=== PATIENT | male | born 1980 | race Caucasian/White ===

== ENCOUNTER 2017-05-19 15:14 | Emergency (ER) | payer MEDICAID ==
[2017-05-19 15:25] VITALS: BP 152/93
[2017-05-19] MEDS ORDERED: Lidocaine/EPINEPHrine/Tetracaine Soln 1 ML TOP ONE (15:36)
[2017-05-19] MEDS ORDERED: Lidocaine 1% with EPINEPHrine 1:100,000 20 ML MDV INJECT ONE (15:36)
--- NOTE | 2017-05-19 16:43 | EDM.PDOC ---
ED HPI GENERAL MEDICAL PROBLEM - General Chief Complaint: Upper Extremity Injury/Pain Stated Complaint: SWOLLEN LT ELBOW Time Seen by Provider: 05/19/17 15:28 Source of Information: Reports: Patient History Limitations: Reports: No Limitations - History of Present Illness INITIAL COMMENTS - FREE TEXT/NARRATIVE: The patient woke up this morning with edema and pain to his left elbow. He had some abrasions to his elbow from moving some forms a few days ago. There is redness and edema. He has no fever or chills. Onset: Sudden Duration: Hour(s): (Woke up with it this morning) Location: Reports: Lower Extremity, Left (Elbow) Quality: Reports: Sharp Severity: Moderate Improves with: Reports: Immobilization Worsens with: Reports: Movement Associated Symptoms: Reports: No Other Symptoms Left Elbow Pain Score (Numeric/FACES): 5 - Related Data Allergies Allergy/AdvReac Type Severity Reaction Status Date / Time No Known Allergies Allergy Verified 05/19/17 15:24 Home Meds: Home Meds Hydrocodone/Acetaminophen [Hydrocodon-Acetaminophen 5-325] 1 - 2 each PO Q6HR PRN #20 tablet 05/19/17 [Rx] Sulfamethoxazole/Trimethoprim [Bactrim Ds Tablet] 1 each PO BID #20 tablet 05/19 [Rx] Past Medical History - Past Health History Medical/Surgical History: Denies Medical/Surgical History Social & Family History - Tobacco Use Smoking Status *Q: Current Every Day Smoker Years of Tobacco use: 10 Packs/Tins Daily: 0.5 Used Tobacco, but Quit: No Second Hand Smoke Exposure: No - Caffeine Use Caffeine Use: Reports: Coffee - Recreational Drug Use Recreational Drug Use: No Review of Systems - Review of Systems Review Of Systems: See Below Constitutional: Reports: No Symptoms Eyes: Reports: No Symptoms Ears: Reports: No Symptoms Nose: Reports: No Symptoms Mouth/Throat: Reports: No Symptoms Respiratory: Reports: No Symptoms Cardiovascular: Reports: No Symptoms GI/Abdominal: Reports: No Symptoms Genitourinary: Reports: No Symptoms Musculoskeletal: Reports: Other (Left elbow pain and edema) ED EXAM, GENERAL - Physical Exam Exam: See Below Exam Limited By: No Limitations General Appearance: Alert, No Apparent Distress Ears: Normal External Exam Nose: Normal Inspection Head: Atraumatic, Normocephalic Neck: Normal Inspection Respiratory/Chest: No Respiratory Distress Extremities: Other (Left elbow has mild erythems and moderate edema to the alecronon process. Good sensation and pulses distally. He has 2 abrasions to the elbow.) Course - Vital Signs Last Recorded V/S: Last Vital Signs Temp 99.1 F 05/19/17 15:21 Pulse 86 05/19/17 15:21 Resp 18 05/19/17 15:21 BP 152/93 H 05/19/17 15:21 Pulse Ox 97 05/19/17 15:21 - Orders/Labs/Meds Orders: Active Orders 24 hr Category Date Time Status CULTURE BODY FLUID + SMEAR [RM] Stat Lab 05/19/17 16:36 Uncollected Meds: Medications Discontinued Medications Generic Name Dose Route Start Last Admin Trade Name Juanq PRN Reason Stop Dose Admin Lidocaine/Epinephrine 20 ml 05/19/17 15:36 Xylocaine 1% With Epinephrine 1:100,000 INJECT 05/19/17 15:37 ONETIME ONE Lidocaine/Tetracaine 1 ml 05/19/17 15:36 05/19/17 15:51 Let Soln TOP 05/19/17 15:37 1 ml ONETIME ONE Administration - Re-Assessments/Exams Free Text/Narrative Re-Assessment/Exam: 05/19/17 16:41 I put LET on his alecronon process on the left. I then used chlorprep to clean the wound. I used a 20cc syringe and an 18 gauge needle to draw off 5ccs of clear yellow fluid with some blood at the end. I will send it away for culture. I will get him on some bactrim BID for 10 days and I will have him follow up with Dr Rayo. Departure - Departure Time of Disposition: 16:45 Disposition: Home, Self-Care 01 Condition: Good Clinical Impression: Bursitis of left elbow Qualifiers: Elbow bursitis location: olecranon bursitis Qualified Code(s): M70.22 - Olecranon bursitis, left elbow - Discharge Information Prescriptions: Hydrocodone/Acetaminophen [Hydrocodon-Acetaminophen 5-325] 1 - 2 each PO Q6HR PRN #20 tablet PRN Reason: Pain Sulfamethoxazole/Trimethoprim [Bactrim Ds Tablet] 1 each PO BID #20 tablet Referrals: Flavio Rayo MD [Physician] - 1 Week Forms: ED Department Discharge Additional Instructions: Take the bactrim 2 times per day for 10 days. Put warm compresses on your elbow 3 times per day for 5 days. Follow up with Dr Rayo within 1 week. Please return if you are worse. - My Orders Last 24 Hours: My Active Orders 05/19/17 16:36 CULTURE BODY FLUID + SMEAR [RM] Stat - Assessment/Plan Last 24 Hours: My Active Orders 05/19/17 16:36 CULTURE BODY FLUID + SMEAR [RM] Stat
== END 2017-05-19 17:20 | disposition home or self-care (01) ==
LOC: JD.ED 15:14
DX: M70.22 Olecranon bursitis, left elbow (principal); F17.210 Nicotine dependence, cigarettes, uncomplicated
CPT/HCPCS: 20610; 87070; 87205; 99283; A9270; 20605; 87077; 87186

== ENCOUNTER 2017-07-23 09:23 | Emergency (ER) | payer MEDICAID ==
--- NOTE | 2017-07-23 09:34 | EDM.PDOC ---
ED HPI GENERAL MEDICAL PROBLEM - General Chief Complaint: Back Pain or Injury Stated Complaint: BACK PAIN Time Seen by Provider: 07/23/17 09:33 - History of Present Illness INITIAL COMMENTS - FREE TEXT/NARRATIVE: 37-year-old male presents to the emergency room with back pain. This pain started about 2 weeks ago progressively been getting worse. Patient cannot recall any triggering event. He may have slept on it wrong it is uncertain what he did. The patient works doing maintenance work at hotels and he does not do any heavy lifting. Patient denies any loss of bowel or bladder control he has no pain that extends into his legs his pain is limited to his mid and lower back. Right Lower Back Pain Score (Numeric/FACES): 5 - Related Data Allergies Allergy/AdvReac Type Severity Reaction Status Date / Time No Known Allergies Allergy Verified 07/23/17 09:32 Home Meds: Home Meds Cyclobenzaprine [Flexeril] 10 mg PO DAILY #10 tablet 07/23/17 [Rx] Naproxen [Naprosyn] 500 mg PO Q12HR #20 tablet 07/23/17 [Rx] Past Medical History - Past Health History Medical/Surgical History: Denies Medical/Surgical History Social & Family History - Tobacco Use Smoking Status *Q: Current Every Day Smoker Years of Tobacco use: 10 Packs/Tins Daily: 0.5 Used Tobacco, but Quit: No Second Hand Smoke Exposure: No - Caffeine Use Caffeine Use: Reports: Coffee - Recreational Drug Use Recreational Drug Use: No ED ROS GENERAL - Review of Systems Review Of Systems: See Below Constitutional: Reports: No Symptoms Respiratory: Reports: No Symptoms Cardiovascular: Reports: No Symptoms GI/Abdominal: Reports: No Symptoms ED EXAM,LOWER BACK PAIN/INJURY - Physical Exam Exam: See Below Exam Limited By: No Limitations General Appearance: Alert, No Apparent Distress Respiratory/Chest: No Respiratory Distress, Lungs Clear, Normal Breath Sounds Cardiovascular: Regular Rate, Rhythm, No Edema, No Murmur Back Exam: Other (He has significant muscle spasm on the right side most notable in the upper lumbar and lower mid thoracic paraspinous musculature. Distracted straight leg raises are negative.). No: Vertebral Tenderness Course - Vital Signs Last Recorded V/S: Last Vital Signs Temp 36.2 C 07/23/17 09:55 Pulse 106 H 07/23/17 09:55 Resp 18 07/23/17 09:55 BP 142/92 H 07/23/17 09:55 Pulse Ox 97 07/23/17 09:55 Departure - Departure Time of Disposition: 09:50 Disposition: Home, Self-Care 01 Clinical Impression: Back strain - Discharge Information Prescriptions: Naproxen [Naprosyn] 500 mg PO Q12HR #20 tablet Cyclobenzaprine [Flexeril] 10 mg PO DAILY #10 tablet Instructions: Mid-Back Strain With Rehab-[facility], Thoracic Strain, Low Back Strain With Rehab-[facility] Referrals: PCP,Not In Area [Primary Care Provider] - Forms: ED Department Discharge Additional Instructions: Return to the emergency room with any questions problems or worsening symptoms. Follow up with physical therapy early this next week. [phone] Follow-up at the Hospital clinic at the end of next week. [phone] You have been started on 2 medications the first one is Naprosyn, it is a ibuprofen-like medication. So don't take ibuprofen in addition to this. Take one twice daily with meals if this is still needed after your prescription runs out the [id number] Aleve can be substituted take 2 twice daily as needed. You have also been started on Flexeril, or cyclobenzaprine, this is a muscle relaxant. Limit its use to nightly. Allow 12 hours after using this before driving or returning to work as it can in limit judgment and cause sedation. Stay active excessive rest can be harmful. Limit your lifting to nothing more than 15 or 20 pounds. No squatting bending over or working in a twisted position. When sleeping on your back place a pillow below your knees so your legs are a little flexed.
[2017-07-23 10:20] VITALS: BP 134/83
== END 2017-07-23 10:10 | disposition home or self-care (01) ==
LOC: JD.ED 09:23
DX: S39.012A Strain of muscle, fascia and tendon of lower back, initial encounter (principal); F17.210 Nicotine dependence, cigarettes, uncomplicated; X58.XXXA Exposure to other specified factors, initial encounter
CPT/HCPCS: 99283

== ENCOUNTER 2017-11-23 13:58 | Emergency (ER) | payer SELFPAY ==
--- NOTE | 2017-11-23 14:07 | EDM.PDOC ---
ED HPI GENERAL MEDICAL PROBLEM - General Stated Complaint: GROIN PAIN Time Seen by Provider: 11/23/17 14:06 Source of Information: Reports: Patient History Limitations: Reports: No Limitations - History of Present Illness INITIAL COMMENTS - FREE TEXT/NARRATIVE: Patient is a 37-year-old male who presents to the ED complaining of severe pain and pressure to the left inguinal region and also left inner buttocks just left of his rectum. Patient states discomfort came on abruptly while playing video games just prior to arrival. States 2 days ago with sexual intercourse he felt slight pain to this location that has persisted. States the pain does improve with gentle pressure on the above area. States he feels that sometimes there is something protruding from there. He has no testicular pain, swelling, ureter drainage, or lesions to his penis. He has no history of inguinal hernias. In addition he has no history of hemorrhoids, anal intercourse, blood from his rectum,diarrhea, dysuria, constipation,fever, or abdominal pain. Patient has a history of drug dependence heroin and cocaine. Denies any prescription medications. Denies any recreational drug use. Denies any recent alcohol use. Left Groin Pain Score (Numeric/FACES): 10 - Related Data Allergies Allergy/AdvReac Type Severity Reaction Status Date / Time No Known Allergies Allergy Verified 11/23/17 14:15 Home Meds: Home Meds . [No Known Home Meds] 11/23/17 [History] Past Medical History - Past Health History Medical/Surgical History: Denies Medical/Surgical History Social & Family History - Tobacco Use Smoking Status *Q: Current Every Day Smoker Years of Tobacco use: 10 Packs/Tins Daily: 0.5 Used Tobacco, but Quit: No Second Hand Smoke Exposure: No - Caffeine Use Caffeine Use: Reports: Coffee - Recreational Drug Use Recreational Drug Use: No ED ROS GENERAL - Review of Systems Review Of Systems: ROS reveals no pertinent complaints other than HPI. ED EXAM, RENAL/ - Physical Exam Exam: See Below Exam Limited By: No Limitations General Appearance: Alert, WD/WN, Severe Distress Ears: Hearing Grossly Normal Nose: Normal Inspection Throat/Mouth: Normal Voice, No Airway Compromise Head: Atraumatic, Normocephalic Neck: Normal Inspection, Supple Respiratory/Chest: No Respiratory Distress, Lungs Clear, Normal Breath Sounds, No Accessory Muscle Use Cardiovascular: Normal Peripheral Pulses, Regular Rate, Rhythm GI/Abdominal: Normal Bowel Sounds, Soft, No Organomegaly, No Distention, Tender (To the left flank, left inguinal region, and left inner thigh proximal to the proximal to the buttocks. ) (Male) Exam: No Hernia, Circumcised, Cremasteric Reflex, Penile Lesions (To the tip of the penis: small area of trauma looks as a painless drinker.). No: Normal Inspection, Normal Prostate (No rectal exam deferred per patient.), Inguinal Lymphadenopathy, Scrotal Swelling, Scrotum Tenderness (L), Scrotum Tenderness (R), Suprapubic Fullness, Testicular Mass, Testicular Tenderness (L) , Testicular Tenderness (R), Urethral Discharge Rectal (Males) Exam: Deferred (Per patient), Other (No blood from rectum or signs of trauma.) Back Exam: Normal Inspection. No: CVA Tenderness (L), CVA Tenderness (R) Extremities: Normal Inspection, Normal Range of Motion, No Pedal Edema, Normal Capillary Refill, Other (Mild discomfort noted to the left inner thigh proximal to the buttocks. No swelling, no redness, no lesions, no bruising, no mass present.) Neurological: Alert, Oriented, CN II-XII Intact, Normal Cognition, No Motor/ Sensory Deficits Psychiatric: Normal Affect, Normal Mood Skin Exam: Warm, Dry, Intact, Normal Color Lymphatic: No Adenopathy Course - Vital Signs Last Recorded V/S: Last Vital Signs Temp 98.3 F 11/23/17 14:15 Pulse 130 H 11/23/17 14:15 Resp 30 H 11/23/17 14:15 BP 152/103 H 11/23/17 14:15 Pulse Ox 98 11/23/17 14:15 - Orders/Labs/Meds Labs: Laboratory Tests 11/23/17 11/23/17 11/23/17 Range/Units 14:10 14:10 14:10 WBC 11.59 H (4.23-9.07) K/mm3 RBC 5.53 (4.63-6.08) M/mm3 Hgb 16.7 (13.7-17.5) gm/L Hct 47.4 (40.1-51.0) % MCV 85.7 (79.0-92.2) fl MCH 30.2 (25.7-32.2) pg MCHC 35.2 (32.2-35.5) g/dl RDW Std Deviation 39.9 (35.1-43.9) fL Plt Count 272 (163-337) K/mm3 MPV 9.1 L (9.4-12.3) fl Neut % (Auto) 51.6 (34.0-67.9) % Lymph % (Auto) 38.0 (21.8-53.1) % [place] % (Auto) 8.8 (5.3-12.2) % Eos % (Auto) 1.0 (0.8-7.0) Baso % (Auto) 0.3 (0.1-1.2) % Neut # (Auto) 5.98 H (1.78-5.38) K/mm3 Lymph # (Auto) 4.40 H (1.32-3.57) K/mm3 [place] # (Auto) 1.02 H (0.30-0.82) K/mm3 Eos # (Auto) 0.12 (0.04-0.54) K/mm3 Baso # (Auto) 0.04 (0.01-0.08) K/mm3 PT 10.5 (8.0-13.0) SECONDS INR 0.98 APTT 28 (22-36) SECONDS Sodium 137 (136-145) mEq/L Potassium 3.6 (3.5-5.1) mEq/L Chloride 101 (98-107) mEq/L Carbon Dioxide 25 (21-32) mEq/L Anion Gap 14.6 (5-15) BUN 16 (7-18) mg/dL Creatinine 1.1 (0.7-1.3) mg/dL Est Cr Clr Drug Dosing 101.26 mL/min Estimated GFR (MDRD) > 60 (>60) mL/min BUN/Creatinine Ratio 14.5 (14-18) Glucose 106 (74-106) mg/dL Calcium 9.5 (8.5-10.1) mg/dL Total Bilirubin 0.9 (0.2-1.0) mg/dL AST 28 (15-37) U/L ALT 59 (16-63) U/L Alkaline Phosphatase 96 (46-116) U/L C-Reactive Protein < 0.2 (<1.0) mg/dL Total Protein 7.5 (6.4-8.2) g/dl Albumin 4.1 (3.4-5.0) g/dl Globulin 3.4 gm/dL Albumin/Globulin Ratio 1.2 (1-2) Urine Color (Yellow) Urine Appearance (Clear) Urine pH (5.0-8.0) Ur Specific [place] (1.005-1.030) Urine Protein (Negative) Urine Glucose (UA) (Negative) Urine Ketones (Negative) Urine Occult Blood (Negative) Urine Nitrite (Negative) Urine Bilirubin (Negative) Urine Urobilinogen (0.2-1.0) Ur Leukocyte Esterase (Negative) Urine RBC (0-5) /hpf Urine WBC (0-5) /hpf Ur Epithelial Cells (0-5) /hpf Amorphous Sediment (NOT SEEN) /hpf Urine Bacteria (FEW) /hpf Urine Mucus (FEW) /hpf Urine Opiates Screen (NEGATIVE) Ur Buprenorphine Scrn (NEGATIVE) Ur Oxycodone Screen (NEGATIVE) Urine Methadone Screen (NEGATIVE) Ur Propoxyphene Screen (NEGATIVE) Ur Barbiturates Screen (NEGATIVE) Ur Tricyclics Screen (NEGATIVE) Ur Phencyclidine Scrn (NEGATIVE) Ur Amphetamine Screen (NEGATIVE) U Methamphetamines Scrn (NEGATIVE) U Benzodiazepines Scrn (NEGATIVE) U Cocaine Metab Screen (NEGATIVE) U Marijuana (THC) Screen (NEGATIVE) C trachomatis DNA (PCR) N gonorrhoeae DNA (PCR) 11/23/17 11/23/17 11/23/17 Range/Units 15:05 15:05 15:05 WBC (4.23-9.07) K/mm3 RBC (4.63-6.08) M/mm3 Hgb (13.7-17.5) gm/L Hct (40.1-51.0) % MCV (79.0-92.2) fl MCH (25.7-32.2) pg MCHC (32.2-35.5) g/dl RDW Std Deviation (35.1-43.9) fL Plt Count (163-337) K/mm3 MPV (9.4-12.3) fl Neut % (Auto) (34.0-67.9) % Lymph % (Auto) (21.8-53.1) % [place] % (Auto) (5.3-12.2) % Eos % (Auto) (0.8-7.0) Baso % (Auto) (0.1-1.2) % Neut # (Auto) (1.78-5.38) K/mm3 Lymph # (Auto) (1.32-3.57) K/mm3 [place] # (Auto) (0.30-0.82) K/mm3 Eos # (Auto) (0.04-0.54) K/mm3 Baso # (Auto) (0.01-0.08) K/mm3 PT (8.0-13.0) SECONDS INR APTT (22-36) SECONDS Sodium (136-145) mEq/L Potassium (3.5-5.1) mEq/L Chloride (98-107) mEq/L Carbon Dioxide (21-32) mEq/L Anion Gap (5-15) BUN (7-18) mg/dL Creatinine (0.7-1.3) mg/dL Est Cr Clr Drug Dosing mL/min Estimated GFR (MDRD) (>60) mL/min BUN/Creatinine Ratio (14-18) Glucose (74-106) mg/dL Calcium (8.5-10.1) mg/dL Total Bilirubin (0.2-1.0) mg/dL AST (15-37) U/L ALT (16-63) U/L Alkaline Phosphatase (46-116) U/L C-Reactive Protein (<1.0) mg/dL Total Protein (6.4-8.2) g/dl Albumin (3.4-5.0) g/dl Globulin gm/dL Albumin/Globulin Ratio (1-2) Urine Color Light yellow (Yellow) Urine Appearance Cloudy H (Clear) Urine pH 8.0 (5.0-8.0) Ur Specific [place] 1.020 (1.005-1.030) Urine Protein Negative (Negative) Urine Glucose (UA) Negative (Negative) Urine Ketones Negative (Negative) Urine Occult Blood Negative (Negative) Urine Nitrite Negative (Negative) Urine Bilirubin Negative (Negative) Urine Urobilinogen 0.2 (0.2-1.0) Ur Leukocyte Esterase Negative (Negative) Urine RBC 0-5 (0-5) /hpf Urine WBC 0-5 (0-5) /hpf Ur Epithelial Cells 0-5 (0-5) /hpf Amorphous Sediment Moderate H (NOT SEEN) /hpf Urine Bacteria Few (FEW) /hpf Urine Mucus Few (FEW) /hpf Urine Opiates Screen Negative (NEGATIVE) Ur Buprenorphine Scrn Negative (NEGATIVE) Ur Oxycodone Screen Negative (NEGATIVE) Urine Methadone Screen Negative (NEGATIVE) Ur Propoxyphene Screen Negative (NEGATIVE) Ur Barbiturates Screen Negative (NEGATIVE) Ur Tricyclics Screen Negative (NEGATIVE) Ur Phencyclidine Scrn Negative (NEGATIVE) Ur Amphetamine Screen Presumptive positive H (NEGATIVE) U Methamphetamines Scrn Presumptive positive H (NEGATIVE) U Benzodiazepines Scrn Negative (NEGATIVE) U Cocaine Metab Screen Negative (NEGATIVE) U Marijuana (THC) Screen Presumptive positive H (NEGATIVE) C trachomatis DNA (PCR) Not detected N gonorrhoeae DNA (PCR) Not detected Meds: Medications Discontinued Medications Generic Name Dose Route Start Last Admin Trade Name Freq PRN Reason Stop Dose Admin Hydromorphone HCl Confirm 11/23/17 14:21 11/23/17 14:22 Dilaudid Administered 11/23/17 14:22 Not Given Dose 1 mg .ROUTE .STK-MED ONE Hydromorphone HCl 1 mg 11/23/17 14:20 11/23/17 14:23 Dilaudid IVPUSH 11/23/17 14:21 1 mg ONETIME ONE Administration Sodium Chloride 1,000 mls @ 500 mls/hr 11/23/17 14:20 11/23/17 14:50 Normal Saline IV 11/23/17 16:19 500 mls/hr ONETIME ONE Administration Iopamidol 150 ml 11/23/17 14:31 11/23/17 14:42 Isovue-300 (61%) IVPUSH 11/23/17 14:32 125 ml ONETIME ONE Administration Lorazepam 0.5 mg 11/23/17 16:58 11/23/17 17:08 Ativan IVPUSH 11/23/17 16:59 Not Given ONETIME ONE Ondansetron HCl Confirm 11/23/17 14:19 11/23/17 14:22 Zofran Administered 11/23/17 14:20 Not Given Dose 4 mg .ROUTE .STK-MED ONE Ondansetron HCl 4 mg 11/23/17 14:20 11/23/17 14:23 Zofran IVPUSH 11/23/17 14:21 4 mg ONETIME ONE Administration Sodium Chloride 10 ml 11/23/17 14:31 11/23/17 14:42 Saline Flush FLUSH 10 ml ONETIME PRN Administration IV FLUSH - Re-Assessments/Exams Free Text/Narrative Re-Assessment/Exam: IV established with normal saline 5 mils an hour, Dilaudid 1 mg IVP, and also Zofran 4 mg IVP. On examination patient had no discomfort to his testicles. He is having severe pain to the left inguinal and inner aspect of the buttocks just left of the rectum. Patient will never tolerate oral contrast. He is nauseated as well. Ordered CT of the abdomen and pelvis with IV contrast. Unclear cause of pain at this point. He does not have what appears to be a testicular torsion. Of note examination of the genitalia there was a sore to the tip of his penis that look like a painless chancre. Per patient he hit his penis on scaffolding at work and denies being in sexual relationship with no one else other then his girlfriend. Denies ever having syphilis. Initial labs and studies will include CBC, chem 14, urine drug tox, GC/chlamydia , coag studies, RPR, UA, and CT of the abdomen and pelvis with IV contrast. UA came back negative for infection. Labs reviewed: CBC and chemistry panel were essentially normal. CRP less than 0.2. UA negative for infection. Urine tox positive for amphetamines, methamphetamines, and marijuana. Patient states he is marijuana approximately 3 days ago. Denies taking methamphetamines or amphetamines. Do not have results of the RPR and/or gonorrhea/chlamydia. Patient is wishing to be discharged home without any treatment at this point. In addition he is not want any Ativan to help him relax. Again he is wishing to be discharged home. Discharge instructions as documented. GC came back negative. RPR results are still not available. Departure - Departure Time of Disposition: 17:07 Disposition: Home, Self-Care 01 Condition: Good Clinical Impression: Left inguinal pain, Positive urine drug screen - Discharge Information Instructions: Pelvic Pain, Male Referrals: PCP,None [Primary Care Provider] - Forms: ED Department Discharge Additional Instructions: Unclear cause of recent complaint. May be associated with pulling a muscle with sexual intercourse 2 days ago aggravated with standing up today while playing video games. At this point I do not have a clear diagnosis. CT of the abdomen and pelvis did not reveal any concerning findings. This showed that she had some mild increase in stool within her colon. Extremities abdominal cramping. In addition UA along with blood work did not reveal any concerning findings. Your urine drug tox was positive for methamphetamines, amphetamines, and also marijuana unclear how the methamphetamines and amphetamines came back positive. We'll discharge home with instructions to follow-up with a PCP this week or the following week of your choosing. Refrain from any activities that cause worsening pain. Return to the ED if you develop any new or worsening symptoms. No driving since receiving a sedative medication while in the ED.
[2017-11-23 14:18] VITALS: BP 152/103
[2017-11-23] MEDS ORDERED: Ondansetron 4 MG/2 ML SDV ONE (14:19)
[2017-11-23] MEDS ORDERED: Sodium Chloride 0.9% 1,000 ML IV ONE (14:20)
[2017-11-23] MEDS ORDERED: HYDROmorphone 1 MG/ML Syringe IVPUSH ONE (14:20)
[2017-11-23] MEDS ORDERED: Ondansetron 4 MG/2 ML SDV IVPUSH ONE (14:20)
[2017-11-23] MEDS ORDERED: HYDROmorphone 0.5 MG/0.5 ML SYRINGE ONE (14:21)
[2017-11-23] MEDS ORDERED: Iopamidol 612 MG/ML 150 ML Bottle IVPUSH ONE (14:31)
[2017-11-23] MEDS ORDERED: Sodium Chloride 0.9% 10 ML Syringe FLUSH PRN (14:31)
--- NOTE | 2017-11-23 15:50 | CT ---
CT abdomen and pelvis Technique: Multiple axial sections were obtained from above the dome of the diaphragm inferiorly through the pubic symphysis. Intravenous contrast was utilized. No oral contrast has been given. Lack of oral contrast diminishes detection of disease processes within and around the bowel. Delayed images were obtained through the bladder. Comparison: No previous abdominal imaging. Findings: Small portion of the visualized lung bases are clear. Liver shows no focal abnormality. Spleen appears within normal limits. Adrenal glands show no nodule. Gallbladder is collapsed. Kidneys show symmetric contrast enhancement without hydronephrosis or mass. Several small nonobstructing calculi are seen within both kidneys. Minimal cyst is noted within the left kidney measuring less than 1 cm. Pancreas appears within normal limits. Aorta shows no aneurysmal dilatation. No retroperitoneal adenopathy or mesenteric abnormalities are seen. No pelvic mass or adenopathy is identified. Mild increased stool is noted throughout the colon. Appendix is not visualized with certainty. No discrete diverticulosis is noted. No free fluid or inflammatory change is seen. Delayed images shows contrast within the bladder. Bone window settings were reviewed which appears within normal limits for the patient's age. Impression: 1. Mild increased stool within the colon. 2. Several small nonobstructing calculi within both kidneys. Small cyst within the left kidney. 3. No additional abnormality is appreciated on CT study of the abdomen and pelvis. Diagnostic code #2
[2017-11-23] MEDS ORDERED: LORazepam 2 MG/ML MDV IVPUSH ONE (16:58)
[2017-11-23 19:08] LABS: C. TRACHOMATIS BY PCR NOT DETECTED; N. GONORRHOEAE BY PCR NOT DETECTED
== END 2017-11-23 17:34 | disposition home or self-care (01) ==
LOC: JD.ED 13:58
DX: R10.32 Left lower quadrant pain (principal); R82.5 Elevated urine levels of drugs, medicaments and biological substances; F17.210 Nicotine dependence, cigarettes, uncomplicated
CPT/HCPCS: 36415; 74177; 80053; 80306; 81001; 85025; 85610; 85730; 86140; 86592; 87491; 87591; 96361; 96374; 96375; 99284; J1170; J2405; J7040; J7050; Q9967